=== PATIENT | male | born 1965 | race Hispanic/Latino ===

== ENCOUNTER 2018-02-16 22:02 | Emergency (ER) | payer OTHER ==
[~2018-02-16] VITALS: Ht 154.9 cm; Wt 112.0 kg
--- OUTSIDE RECORDS SUMMARY | 2018-02-16 22:04 | XMS REPORT | Summary of Care ---
Author Author [facility] Organization [facility] Address Unknown Phone Unavailable Encounter HQ Barbara(WILLIAM) [phone] Date(s): 12/19/15 - 12/19/15 [facility] [address] [place] [address]- [phone] Discharge Diagnosis: Suprapubic pain Discharge Diagnosis: Chronic back pain Discharge Diagnosis: Hematuria Discharge Diagnosis: Testicular pain Discharge Diagnosis: Hydrocele Discharge Disposition: Home or Self Care Attending Physician: Esteban Cisneros MD Vital Signs 1 2 3 Most recent to oldest [Reference Range]: 160.02 cm (12/19/15 12:45 AM) Height 98.1 DegF (12/19/15 6:34 AM) 98.6 DegF (12/19/15 4:25 AM) 98.3 DegF (12/19/15 3:22 AM) Temperature Oral [96.4-99.1 DegF] 134/60 mmHg (12/19/15 6:34 AM) 122/86 mmHg (12/19/15 4:25 AM) 136/86 mmHg (12/19/15 3:22 AM) Blood Pressure [90-140/60-90 mmHg] 16 BRMIN (12/19/15 6:34 AM) 14 BRMIN (12/19/15 4:25 AM) 20 BRMIN (12/19/15 3:22 AM) Respiratory Rate [14-20 BRMIN] 92 bpm (12/19/15 6:34 AM) 94 bpm (12/19/15 4:25 AM) 98 bpm (12/19/15 3:22 AM) Peripheral Pulse Rate [60-100 bpm] 113.636 kg (12/19/15 12:45 AM) Weight 44.38 m2 (12/19/15 12:45 AM) Body Mass Index Problem List Condition Effective Dates Status Health Status Informant Chronic back Active pain(Confirmed) Allergies, Adverse Reactions, Alerts Substance Reaction Severity Status Lyrica Active NKDA Active Vicodin Active Medications No data available for this section Results URINE AND STOOL Most recent to 1 oldest [Reference Range]: UA Turbidity [Clear] Clear (12/19/15 1:14 AM) UA Color Ltyellow *NA* (12/19/15 1:14 AM) UA pH [5.0-8.0] 5.0 (12/19/15 1:14 AM) UA Spec Grav 1.026 [<=1.030] (12/19/15 1:14 AM) UA Glucose [Negative 500 mg/dL mg/dL] *ABN* (12/19/15 1:14 AM) UA Blood [Negative] Moderate *ABN* (12/19/15 1:14 AM) UA Ketones [Negative Negative mg/dL mg/dL] *NA* (12/19/15 1:14 AM) UA Protein [Negative Negative mg/dL mg/dL] (12/19/15 1:14 AM) UA Urobilinogen <=1.0 mg/dL [0.1-1.0 mg/dL] *NA* (12/19/15 1:14 AM) UA Bili [Negative] Negative *NA* (12/19/15 1:14 AM) UA Leuk Est Negative [Negative] (12/19/15 1:14 AM) UA Nitrite Negative [Negative] (12/19/15 1:14 AM) UA WBC [0-5 /HPF] 1 /HPF (12/19/15 1:14 AM) UA RBC [0-2 /HPF] 7 /HPF *HI* (12/19/15 1:14 AM) UA Bacteria [None Occasional /HPF Seen /HPF] *NA* (12/19/15 1:14 AM) UA Sq Epi None Seen *NA* (12/19/15 1:14 AM) Immunizations No data available for this section Procedures No data available for this section Social History Social History Type Response Smoking Status Never smoker; Exposure to Tobacco Smoke None; Cigarette Smoking Last 365 Days No; Reg Smoking Cessation Counseling No Assessment and Plan No data available for this section
--- OUTSIDE RECORDS SUMMARY | 2018-02-16 22:04 | XMS REPORT | Summary of Care ---
Author Author [facility] Organization [facility] Address Unknown Phone Unavailable Encounter HQ Encntr_alishelby(WILLIAM) [phone] Date(s): 04/13/15 - 04/13/15 [facility] [address] [place] [address]- [phone] Discharge Disposition: Home Attending Physician: Tonia Estrada MD Admitting Physician: Tonia Estrada MD Referring Physician: Tonia Estrada MD Vital Signs No data available for this section Problem List No data available for this section Allergies, Adverse Reactions, Alerts Substance Reaction Severity Status Lyrica Active Vicodin Active Medications No data available for this section Results No data available for this section Immunizations No data available for this section Procedures No data available for this section Social History No data available for this section Assessment and Plan No data available for this section
--- OUTSIDE RECORDS SUMMARY | 2018-02-16 22:04 | XMS REPORT | CCD ---
Author Author Auto Generated Organization [facility] Address Unknown Phone Unavailable Care Team Providers Care Pediatric Anesthesiologist Name Role Phone Jordan Bustillo CP Allergies, Adverse Reactions, Alerts Substance Reaction Status Lyrica Active Vicodin Active Medications Medication Instructions Start Date End Date Status hydromorphone 1 mg, Route: IVP, ONCE, Dosing 11/17/2011 11/17/2011 Completed Weight 106.364, kg, Priority: STAT, Start date: 11/17/11 11:45:00, Stop date: 11/17/11 11:45:00 Tylenol with Codeine 1 tab, PO, Q6H, PRN, 15 tab, Pain, 11/17/2011 Ordered #3 oral tablet Substitution Allowed, Maintenance diazepam 5 mg, Route: PO, ONCE, Dosing 11/17/2011 11/17/2011 Completed Weight 106.364, kg, Priority: STAT, Start date: 11/17/11 8:15:00, Stop date: 11/17/11 8:15:00 diazepam 10 mg oral 10 mg, 1 tab, PO, TID, PRN, 15 tab, 11/17/2011 Ordered tablet Back Pain, Substitution Allowed, TAB hydromorphone 1 mg, Route: IVP, ONCE, Dosing 11/17/2011 11/17/2011 Completed Weight 106.364, kg, Priority: STAT, Start date: 11/17/11 8:15:00, Stop date: 11/17/11 8:15:00 Vital Signs Most recent to oldest [Reference Range]: 1 Height 154.94 cm (11/17/2011 06:03:00) Weight 106.364 kg (11/17/2011 06:03:00) Results URINALYSIS Most recent to oldest [Reference Range]: 1 UA Turbidity [Clear] Clear (11/17/2011 11:45:00) UA Color [Yellow] Yellow *NA* (11/17/2011 11:45:00) UA pH [5.0-8.0] 5.0 (11/17/2011 11:45:00) UA Spec Grav [<=1.030] 1.021 (11/17/2011 11:45:00) UA Glucose [Negative mg/dL] Negative mg/dL *NA* (11/17/2011 11:45:00) UA Blood [Negative] Moderate *ABN* (11/17/2011 11:45:00) UA Ketones [Negative mg/dL] Negative mg/dL *NA* (11/17/2011 11:45:00) UA Protein [Negative mg/dL] Negative mg/dL (11/17/2011 11:45:00) UA Urobilinogen [0.1-1.0 mg/dL] <=1.0 mg/dL *NA* (11/17/2011 11:45:00) UA Bili [Negative] Negative *NA* (11/17/2011 11:45:00) UA Leuk Est [Negative] Negative (11/17/2011 11:45:00) UA Nitrite [Negative] Negative (11/17/2011 11:45:00) UA WBC [0-5 /HPF] 1 /HPF (11/17/2011 11:45:00) UA RBC [0-2 /HPF] 2 /HPF (11/17/2011 11:45:00) UA Bacteria [None Seen /HPF] Occasional /HPF *NA* (11/17/2011 11:45:00) UA Sq Epi [Few /LPF] Occasional /LPF *NA* (11/17/2011 11:45:00) CHEMISTRY Most recent to oldest [Reference Range]: 1 Sodium Lvl [135-145 mEq/L] 139 mEq/L (11/17/2011 10:00:00) Potassium Lvl [3.5-5.1 mEq/L] 3.7 mEq/L (11/17/2011 10:00:00) Chloride Lvl [95-109 mEq/L] 106 mEq/L (11/17/2011 10:00:00) CO2 [24-32 mEq/L] 24 mEq/L (11/17/2011 10:00:00) AGAP [10.0-20.0 mEq/L] 12.7 mEq/L (11/17/2011 10:00:00) Creatinine Lvl [0.5-1.4 mg/dL] 0.8 mg/dL (11/17/2011 10:00:00) BUN [7-22 mg/dL] 14 mg/dL (11/17/2011 10:00:00) Glucose Lvl [70-99 mg/dL] 106 mg/dL 1 *HI* (11/17/2011 10:00:00) Calcium Lvl [8.5-10.5 mg/dL] 9.1 mg/dL (11/17/2011 10:00:00) Total CK [12-191 unit/L] 146 unit/L (11/17/2011 10:00:00) 1Interpretive Data: Adult reference range values reflect the clinical guidelines of the [place] [employer]. HEMATOLOGY Most recent to oldest [Reference Range]: 1 WBC [3.7-10.4 K/CMM] 8.5 K/CMM (11/17/2011 10:00:00) RBC [4.70-6.10 M/CMM] 5.03 M/CMM (11/17/2011 10:00:00) Hgb [14.0-18.0 g/dL] 15.4 g/dL (11/17/2011 10:00:00) Hct [42.0-54.0 %] 45.4 % (11/17/2011 10:00:00) MCV [80.0-94.0 fL] 90.3 fL (11/17/2011 10:00:00) MCH [27.0-31.0 pg] 30.7 pg (11/17/2011 10:00:00) MCHC [32.0-36.0 g/dL] 34.0 g/dL (11/17/2011 10:00:00) RDW [11.5-14.5 %] 13.6 % (11/17/2011 10:00:00) Platelet [133-450 K/CMM] 252 K/CMM (11/17/2011 10:00:00) MPV [7.4-10.4 fL] 7.6 fL (11/17/2011 10:00:00) Segs [45.0-75.0 %] 70.7 % (11/17/2011 10:00:00) Lymphocytes [20.0-40.0 %] 21.6 % (11/17/2011 10:00:00) Monocytes [2.0-12.0 %] 6.0 % (11/17/2011 10:00:00) Eosinophils [0.0-4.0 %] 1.2 % (11/17/2011 10:00:00) Basophils [0.0-1.0 %] 0.5 % (11/17/2011 10:00:00) Segs-Bands # [1.5-8.1 K/CMM] 6.0 K/CMM (11/17/2011 10:00:00) Lymphocytes # [1.0-5.5 K/CMM] 1.8 K/CMM (11/17/2011 10:00:00) Monocytes # [0.0-0.8 K/CMM] 0.5 K/CMM (11/17/2011 10:00:00) Eosinophils # [0.0-0.5 K/CMM] 0.1 K/CMM (11/17/2011 10:00:00) Basophils # [0.0-0.2 K/CMM] 0.0 K/CMM (11/17/2011 10:00:00)
--- OUTSIDE RECORDS SUMMARY | 2018-02-16 22:04 | XMS REPORT | CCD ---
Author Author Auto Generated Organization [facility] Address Unknown Phone Unavailable Care Team Providers Care Maintenance Controller Name Role Phone Tonia Estrada CP Allergies, Adverse Reactions, Alerts Substance Reaction Status Lyrica Active Vicodin Active
--- OUTSIDE RECORDS SUMMARY | 2018-02-16 22:04 | XMS REPORT | Summary of Care ---
Author Author Florencio Frey Organization Unknown Address Unknown Phone Unavailable Care Team Providers Care Manager Practice Name Role Phone PURA Montelongo, MACRINA Unavailable Unavailable DANIELLE Montelongo, GERBER Unavailable Unavailable JESÚS Montelongo, MOUSTAFA Unavailable Unavailable Florencio Frey Unavailable Unavailable PURA PARHAM UT, MACRINA Harrell Unavailable Unavailable Unavailable Unavailable Functional Status Name Dates Details Functional status health issues are not documented Status: Name Dates Details Cognitive status health issues are not documented Status: Problems Name Dates Details Generalized weakness (780.79, R53.1) Status: Active Lump or mass in breast (611.72, N63.0) Status: Active Chest pain (786.50, R07.9) Status: Active On statin therapy (V58.69, Z79.899) Status: Active Hypertension (401.9, I10) Status: Active Hyperlipidemia (272.4, E78.5) Status: Active Encounter for diabetic foot exam (250.00, E11.9) Status: Active Abnormal weight gain (783.1, R63.5) Status: Active Acute bacterial bronchitis (466.0, J20.8) Status: Active Chronic cervical radiculopathy (723.4, M54.12) Status: Active Inflamed skin tag (701.9, L91.8) Status: Active Spondylosis without myelopathy or radiculopathy, 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, M47.816) Status: Active Chronic left shoulder pain (719.41, M25.512) Status: Active Chronic pain of both knees (719.46, M25.561) Status: Active Chronic bilateral low back pain with bilateral sciatica (724.2, M54.42) Status: Active Diabetes mellitus (250.00, E11.9) Status: Active Failed back syndrome, lumbar (722.83, M96.1) Status: Active 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 * Refills: 0 Active Duexis 800-26.6 MG Oral Tablet TAKE 1 TABLET DAILY PRN * Refills: 0 Active OneTouch Verio In Vitro Strip Check BG 2x a day * Quantity: 1 Refills: 2 MACRINA NEVES M.D. * Start : 23-Feb-2016 Active 100 Strip Box OneTouch Delica Lancets 33G Check twice daily * Quantity: 100 Refills: 2 MACRINA NEVES M.D. * Start : 23-Feb-2016 Active MetFORMIN HCl ER 500 MG Oral Tablet Extended Release 24 Hour TAKE 1 TABLET TWICE DAILY * Quantity: 180 Refills: 1 MACRINA NEVES M.D. Active Gabapentin 300 MG Oral Capsule TAKE 2 CAPSULE 3 TIMES DAILY * Quantity: 180 Refills: 0 PADDY ESPINOSA M.D. Active Ezetimibe 10 MG Oral Tablet TAKE 1 TABLET AT BEDTIME. * Quantity: 90 Refills: 1 GERBER SANTOS M.D. * Start : 13-Jun-2016 Active Aspirin 81 MG Oral Tablet Delayed Release TAKE 1 TABLET DAILY * Refills: 0 * Start : 13-Jun-2016 Active Livalo 4 MG Oral Tablet TAKE 1 TABLET DAILY * Quantity: 30 Refills: 5 GERBER SANTOS M.D. * Start : 18-Aug-2016 Active Multi Vitamin Daily TABS * Refills: 0 Active Livalo 4 MG Oral Tablet TAKE 1 TABLET DAILY * Quantity: 90 Refills: 3 GERBER SANTOS M.D. * Start : 21-Dec-2017 Active Allergies and Adverse Reactions Name Dates Details Lyrica CAPS (Allergy) Status: Active pravastatin (Allergy) Reaction: Myalgia Status: Active Vicodin TABS (Allergy) Status: Active Past Medical History Name Dates Details History of Deficiency of vitamin B12 (266.2, E53.8) Status: Resolved History of depression (V11.8, Z86.59) Status: Resolved History of esophageal reflux (V12.79, Z87.19) Status: Resolved History of headache (V13.89, Z87.898) Status: Resolved History of obesity (V12.29, Z86.39) Status: Resolved Procedures Procedure Dates Details [Q] LIPID PANEL WITH DIRECT LDL Date: 21-Dec-2017 [QLH] HEPATIC FUNCTION PANEL Date: 21-Dec-2017 History of Arthrodesis Lumbar Completed History of Shoulder Surgery Completed Immunization Name Dates Details Influenza, injectable, quadrivalent, preservative free Lot #: [id number] on: 10-Oct-2017 Family History Name Dates Details Family history of congestive heart failure (V17.49, Z82.49) Status: Active Family history of Leaky heart valve (396.3, I38) Status: Active Name Dates Details Family history of myocardial infarction (V17.3, Z82.49) Status: Active Social History Name Dates Details - Status: Name Dates Details Never smoker Vital Signs Date Test Result Details [id number] BP Systolic 124 mm[Hg] Status: Comments: Location: LUE; Position: Sitting BP Diastolic 86 mm[Hg] Status: Comments: Location: LUE; Position: Sitting Height 61 in Status: Weight 251 lb Status: Body Mass Index Calculated 47.43 kg/m2 Status: Body Surface Area Calculated 2.08 m2 Status: Temperature 97.9 f Status: Comments: Method: Temporal Heart Rate 96 /min Status: Respiration Rate 16 /min Status: Results Date Description Value Details Results not documented Plan of Care Name Dates Details Planned Observations Planned Goals not documented Planned Encounters Appointment; GERBER SANTOS M.D. On: 20-Dec-2018 9:00 Instructions Name Dates Details Instructions not documented Encounters Appointment; MACRINA NEVES M.D. Encounter Diagnosis: Problem not documented On: 11-Feb-2016 9:45 Appointment; [facility] [address] [address] Encounter Diagnosis: Problem not documented On: 23-Feb-2016 13:00 Appointment; MACRINA NEVES M.D. Encounter Diagnosis: Problem not documented On: 25-Feb-2016 8:15 Appointment; MACRINA NEVES M.D. Encounter Diagnosis: Problem not documented On: 26-May-2016 9:00 Appointment; MACRINA NEVES M.D. Encounter Diagnosis: Problem not documented On: 13-Jun-2016 10:30 Appointment; GERBER SANTOS M.D. Encounter Diagnosis: Problem not documented On: 13-Jun-2016 15:00 Appointment; [facility] Encounter Diagnosis: Problem not documented On: 14-Jun-2016 9:00 Appointment; [facility] Encounter Diagnosis: Problem not documented On: 20-Jun-2016 11:30 Appointment; GERBER SANTOS M.D. Encounter Diagnosis: Problem not documented On: 20-Jun-2016 15:00 Appointment; GERBER SANTOS M.D. Encounter Diagnosis: Problem not documented On: 18-Aug-2016 15:30 Appointment; MACRINA NEVES M.D. Encounter Diagnosis: Problem not documented On: 25-Aug-2016 9:00 Appointment; MACRINA NEVES M.D. Encounter Diagnosis: Problem not documented On: 28-Nov-2016 9:00 Appointment; GERBER SANTOS M.D. Encounter Diagnosis: Problem not documented On: 05-Dec-2016 13:20 Appointment; SAHRA HIGGINS P.A. Encounter Diagnosis: Problem not documented On: 13-Jan-2017 10:15 Appointment; MACRINA NEVES M.D. Encounter Diagnosis: Problem not documented On: 13-Feb-2017 10:15 Appointment; GERBER SANTOS M.D. Encounter Diagnosis: Problem not documented On: 07-Mar-2017 13:00 Appointment; GERBER SANTOS M.D. Encounter Diagnosis: Problem not documented On: 19-Jun-2017 13:00 Appointment; MACRINA NEVES M.D. Encounter Diagnosis: Problem not documented On: 20-Jul-2017 12:30 Appointment; MACRINA NEVES M.D. Encounter Diagnosis: Problem not documented On: 05-Oct-2017 10:00 Appointment; PADDY ESPINOSA M.D. Encounter Diagnosis: Problem not documented On: 28-Nov-2017 8:00 Appointment; PADDY ESPINOSA M.D. Encounter Diagnosis: Problem not documented On: 28-Nov-2017 8:15 Appointment; GERBER SANTOS M.D. Encounter Diagnosis: Problem not documented On: 21-Dec-2017 9:20 Appointment; MACRINA NEVES M.D. Encounter Diagnosis: Problem not documented On: 01-Jan-2018 14:30 Appointment; MACRINA NEVES M.D. Encounter Diagnosis: Problem not documented On: 01-Jan-2018 14:30
--- OUTSIDE RECORDS SUMMARY | 2018-02-16 22:04 | XMS REPORT | CCD ---
Author Author Auto Generated Organization [facility] Address Unknown Phone Unavailable Care Team Providers Care End User Consultant Name Role Phone Tonia Estrada CP Allergies, Adverse Reactions, Alerts Substance Reaction Status Lyrica Active Vicodin Active
--- OUTSIDE RECORDS SUMMARY | 2018-02-16 22:04 | XMS REPORT | Continuity of Care Document ---
Author Author Radha larissa [facility] Interface Address Unknown Phone Unavailable Problems Problem Status Onset Date Classification Date Reported Comments Source Discharge Diagnosis: Suprapubic pain 12/19/2015 12/22/2015 [facility] Discharge Diagnosis: Chronic back pain 12/19/2015 12/22/2015 [facility] Discharge Diagnosis: Hematuria 12/19/2015 12/22/2015 [facility] Discharge Diagnosis: Testicular pain 12/19/2015 12/22/2015 [facility] Discharge Diagnosis: Hydrocele 12/19/2015 12/22/2015 [facility] PROSTATE PAIN Active 12/17/2015 [facility] M54.17=RADICULOPATHY, LUMBOSACRAL REGION Active 04/03/2015 [facility] BACK PAIN Active 11/17/2011 [facility] Chronic back pain Active Problem 12/22/2015 [facility] UNK Active [facility] 724.4 Active [facility] Medications Medication Details Route Status Patient Instructions Ordering Provider Order Date Source hydromorphone 1 mg, Route: IVP, ONCE, Dosing Weight 106.364, kg, Priority: STAT, Start date: 11/17/11 11:45:00, Stop date: 11/17/11 11:45:00 IVP No Longer Active [facility] 11/17/2011 [facility] Tylenol with Codeine #3 oral tablet 1 tab, PO, Q6H, PRN, 15 tab, Pain, Substitution Allowed, Maintenance PO Active [facility] 11/17/2011 [facility] diazepam 10 mg oral tablet 10 mg, 1 tab, PO, TID, PRN, 15 tab, Back Pain, Substitution Allowed, TAB PO Active [facility] 11/17/2011 [facility] diazepam 5 mg, Route: PO, ONCE, Dosing Weight 106.364, kg, Priority: STAT, Start date: 11/17/11 8:15:00, Stop date: 11/17/11 8:15:00 PO No Longer Active [facility] 11/17/2011 [facility] hydromorphone 1 mg, Route: IVP, ONCE, Dosing Weight 106.364, kg, Priority: STAT, Start date: 11/17/11 8:15:00, Stop date: 11/17/11 8:15:00 IVP No Longer Active [facility] 11/17/2011 [facility] Allergies, Adverse Reactions, Alerts Substance Category Reaction Severity Reaction type Status Date Reported Comments Source Lyrica drug allergy Allergy Active [facility] Vicodin drug allergy Allergy Active [facility] Immunizations Immunization Date Given Site Status Last Updated Comments Source Results Order Name Results Value Reference Range Date Interpretation Comments Source URINE AND STOOL UA Sq Epi None Seen 12/19/2015 [facility] URINE AND STOOL UA Bacteria Occasional /HPF None Seen /HPF 12/19/2015 [facility] URINE AND STOOL UA Color Ltyellow 12/19/2015 [facility] URINE AND STOOL UA Urobilinogen <=1.0 mg/dL 0.1 - 1.0 12/19/2015 [facility] URINE AND STOOL UA Spec Grav 1.026 <=1.030 12/19/2015 [facility] URINE AND STOOL UA Turbidity Clear (12/19/15 1:14 AM) Clear 12/19/2015 [facility] URINE AND STOOL UA Nitrite Negative (12/19/15 1:14 AM) Negative 12/19/2015 [facility] URINE AND STOOL UA Blood Moderate *ABN* (12/19/15 1:14 AM) Negative 12/19/2015 [facility] URINE AND STOOL UA WBC 1 /HPF 0 - 5 12/19/2015 [facility] URINE AND STOOL UA Leuk Est Negative (12/19/15 1:14 AM) Negative 12/19/2015 [facility] URINE AND STOOL UA RBC 7 /HPF 0 - 2 12/19/2015 [facility] URINE AND STOOL UA Bili Negative *NA* (12/19/15 1:14 AM) Negative 12/19/2015 [facility] URINE AND STOOL UA Ketones Negative mg/dL Negative mg/dL 12/19/2015 [facility] URINE AND STOOL UA Glucose 500 mg/dL Negative mg/dL 12/19/2015 [facility] URINE AND STOOL UA Protein Negative mg/dL Negative mg/dL 12/19/2015 [facility] URINE AND STOOL UA pH 5.0 5.0 - 8.0 12/19/2015 [facility] Scrotal/Testicle w Doppler US Scrotal/Testicle w Doppler US SCROTAL ULTRASOUND WITH DOPPLER HISTORY: Scrotal pain; COMPARISON: Scrotal ultrasound of 09/21/2009. TECHNIQUE AND FINDINGS: Multiple static images from a testicular ultrasound are submitted for interpretation. Doppler imaging was included. The bilateral testicular size, shape, and echotexture are normal. Bilateral microlithiasis is present. The right testicle measures 3.4 cm x 1.8 cm x 3.8 cm and the left testicle measures 3.8 cm x 2.1 cm x 2.9 cm. Normal blood flow to the testicles is identified. The bilateral epididymis are normal in appearance. Small to moderate bilateral hydroceles are present. Left varicocele is present. IMPRESSION: 1. No specific acute findings detected. 2. Small to moderate bilateral hydroceles. 3. Left varicocele is present. 4. Mild bilateral testicular microlithiasis. No definite mass lesion detected. SL: [id number] 12/19/2015 - - Read by: Fabricio Dyer MD Dictated Date/time: 12/19/15 02:40 Electronically Signed by: Fabricio Dyer MD 12/19/15 02:49 FINAL REPORT [facility] Spine lumbar wo contrast CT Spine lumbar wo contrast CT CT LUMBAR SPINE WITHOUT CONTRAST INDICATION: Lumbar back pain and radiculopathy COMPARISON: Lumbar spine radiograph 03/22/2012 DISCUSSION: The CT of the lumbar spine was performed following discography. Injections are noted from L3-L4 through L5-S1. Due to technical error, the lumbosacral spine was not scanned below the level of the inferior endplate of L5. The L5-S1 disc space is not included in the study. The usual five non-rib bearing lumbar vertebral bodies are presumed present. Alignment: There is normal lordotic curvature. Vertebral body alignment is within normal limits. Vertebral bodies: There are no compression or displaced fractures. Soft tissues: Grossly unremarkable. 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 T12-L1 through L2-L3: The disc spaces are maintained. There is no significant facet arthrosis. The spinal canal and foramina are grossly patent. L3-L4: The disc space is maintained. There is no significant facet arthrosis.The spinal canal and foramina are patent. There is linear extension of injected contrast into the inner one third of the annulus. L4-L5: The disc spaces maintained. There is no significant facet arthrosis. The spinal canal and foramina are grossly patent. There is no visible contrast leak from the nucleus. IMPRESSION: Incomplete CT of the lumbar spine following discogram. The L5-S1 level was not scanned. If clinically indicated, consider repeat discography or MRI of the lumbar spine for further evaluation. Discography is interpreted using the Modified Randell Discogram classification system. 1. No significant lumbar spondylosis, spinal canal or foraminal stenosis. 2. Grade 1 annular tear at L3-L4. 3. Grade 0 (normal disc) at L4-L5. SL: 16 04/13/2015 - - Read by: Khris Juan MD Dictated Date/time: 04/15/15 13:22 Electronically Signed by: Khris Juan MD 04/15/15 13:50 FINAL REPORT [facility] Spine cervical minimum of 4 views Spine cervical minimum of 4 views HISTORY: Pain Cervical spine 5 views. Normal vertebral height and alignment. No fracture subluxation or acute abnormality. Mild disc space narrowing at C4-C5. Minimal C4-C5 and C5-C6 anterior osteophytes. Oblique views demonstrate widely patent neural exit foramina. IMPRESSION: Mild degenerative changes. SL:13 11/28/2012 - - Read by: Jaret Weathers Dictated Date/time: 11/28/12 11:12 Electronically Signed by: Jaret Weathers MD 11/28/12 11:13 FINAL REPORT [facility] URINALYSIS UA Urobilinogen <=1.0 mg/dL
*NA*
(11/17/2011 11:45:00) <sup> </sup> 0.1 - 1.0 11/17/2011 [facility] URINALYSIS UA pH 5.0 5.0 - 8.0 11/17/2011 Normal [facility] URINALYSIS UA Protein Negative mg/dL (11/17/2011 11:45:00) Negative 11/17/2011 Normal [facility] URINALYSIS UA Spec Grav 1.021 <=1.030 11/17/2011 Normal [facility] URINALYSIS UA Ketones Negative mg/dL *NA* (11/17/2011 11:45:00) Negative 11/17/2011 [facility] URINALYSIS UA Bili Negative *NA* (11/17/2011 11:45:00) Negative 11/17/2011 [facility] URINALYSIS UA Blood Moderate *ABN* (11/17/2011 11:45:00) Negative 11/17/2011 ABN [facility] URINALYSIS UA Nitrite Negative (11/17/2011 11:45:00) Negative 11/17/2011 Normal [facility] URINALYSIS UA Glucose Negative mg/dL *NA* (11/17/2011 11:45:00) Negative 11/17/2011 NA [facility] URINALYSIS UA Bacteria Occasional /HPF *NA* (11/17/2011 11:45:00) None Seen 11/17/2011 NA [facility] URINALYSIS UA Leuk Est Negative (11/17/2011 11:45:00) Negative 11/17/2011 Normal [facility] URINALYSIS UA Sq Epi Occasional /LPF *NA* (11/17/2011 11:45:00) Few 11/17/2011 NA [facility] URINALYSIS UA WBC 1 /HPF 0 - 5 11/17/2011 Normal [facility] URINALYSIS UA RBC 2 /HPF 0 - 2 11/17/2011 Normal [facility] URINALYSIS UA Color Yellow *NA* (11/17/2011 11:45:00) Yellow 11/17/2011 NA [facility] URINALYSIS UA Turbidity Clear (11/17/2011 11:45:00) Clear 11/17/2011 Normal [facility] CHEMISTRY Total CK 146 unit/L 12 - 191 11/17/2011 Normal [facility] CHEMISTRY Calcium Lvl 9.1 mg/dL 8.5 - 10.5 11/17/2011 Normal [facility] CHEMISTRY CO2 24 meq/L 24 - 32 11/17/2011 Normal [facility] CHEMISTRY Chloride Lvl 106 meq/L 95 - 109 11/17/2011 Normal [facility] CHEMISTRY Creatinine Lvl 0.8 mg/dL 0.5 - 1.4 11/17/2011 Normal [facility] CHEMISTRY Potassium Lvl 3.7 meq/L 3.5 - 5.1 11/17/2011 Normal [facility] CHEMISTRY BUN 14 mg/dL 7 - 22 11/17/2011 Normal [facility] CHEMISTRY Sodium Lvl 139 meq/L 135 - 145 11/17/2011 Normal [facility] CHEMISTRY Glucose Lvl 106 mg/dL 70 - 99 11/17/2011 [facility] 1Interpretive Data: Adult reference range values reflect the clinical guidelines of the [place] [employer]. [facility] CHEMISTRY AGAP 12.7 meq/L 10.0 - 20.0 11/17/2011 Normal [facility] HEMATOLOGY Hgb 15.4 g/dL 14.0 - 18.0 11/17/2011 Normal [facility] HEMATOLOGY Hct 45.4 % 42.0 - 54.0 11/17/2011 Normal [facility] HEMATOLOGY RBC 5.03 M/CMM 4.70 - 6.10 11/17/2011 Normal [facility] HEMATOLOGY WBC 8.5 K/CMM 3.7 - 10.4 11/17/2011 Normal [facility] HEMATOLOGY RDW 13.6 % 11.5 - 14.5 11/17/2011 Normal [facility] HEMATOLOGY MCV 90.3 fL 80.0 - 94.0 11/17/2011 Normal [facility] HEMATOLOGY MCHC 34.0 g/dL 32.0 - 36.0 11/17/2011 Normal [facility] HEMATOLOGY MCH 30.7 pg 27.0 - 31.0 11/17/2011 Normal [facility] HEMATOLOGY Platelet 252 K/CMM 133 - 450 11/17/2011 Normal [facility] HEMATOLOGY MPV 7.6 fL 7.4 - 10.4 11/17/2011 Normal [facility] HEMATOLOGY Lymphocytes # 1.8 K/CMM 1.0 - 5.5 11/17/2011 Normal [facility] HEMATOLOGY Basophils 0.5 % 0.0 - 1.0 11/17/2011 Normal [facility] HEMATOLOGY Segs-Bands # 6.0 K/CMM 1.5 - 8.1 11/17/2011 Normal [facility] HEMATOLOGY Eosinophils # 0.1 K/CMM 0.0 - 0.5 11/17/2011 Normal [facility] HEMATOLOGY Basophils # 0.0 K/CMM 0.0 - 0.2 11/17/2011 Normal [facility] HEMATOLOGY Monocytes # 0.5 K/CMM 0.0 - 0.8 11/17/2011 Normal [facility] HEMATOLOGY Lymphocytes 21.6 % 20.0 - 40.0 11/17/2011 Normal [facility] HEMATOLOGY Monocytes 6.0 % 2.0 - 12.0 11/17/2011 Normal [facility] HEMATOLOGY Eosinophils 1.2 % 0.0 - 4.0 11/17/2011 Normal [facility] HEMATOLOGY Segs 70.7 % 45.0 - 75.0 11/17/2011 Normal [facility] Vital Signs Vital Sign Value Date Comments Source Systolic (mm Hg) 134 12/19/2015 [facility] Diastolic (mm Hg) 60 12/19/2015 [facility] Respitory Rate 16 12/19/2015 [facility] Heart Rate 92 12/19/2015 [facility] Temperature Oral (F) 98.1 F 12/19/2015 [facility] Respitory Rate 14 12/19/2015 [facility] Systolic (mm Hg) 122 12/19/2015 [facility] Diastolic (mm Hg) 86 12/19/2015 [facility] Temperature Oral (F) 98.6 F 12/19/2015 [facility] Heart Rate 94 12/19/2015 [facility] Temperature Oral (F) 98.3 F 12/19/2015 [facility] Systolic (mm Hg) 136 12/19/2015 [facility] Diastolic (mm Hg) 86 12/19/2015 [facility] Heart Rate 98 12/19/2015 [facility] Respitory Rate 20 12/19/2015 [facility] Height 160.02 cm 12/19/2015 [facility] Weight 113.636 12/19/2015 [facility] BMI Calculated 44.38 12/19/2015 [facility] Weight 106.364 11/17/2011 [facility] Height 154.94 cm 11/17/2011 [facility] Encounters Location Location Details Encounter Type Encounter Number Reason For Visit Attending Provider ADM Date DC Date Status Source [facility] Emergency [id number] OVI QUIJANO 11/17/2011 11/17/2011 Active [facility] Out[facility] [id number] [facility]24[facility]2012 Active [facility] Outpatient [id number] [facility] HAMID 11/28/2012 Active [facility] Outpatient [id number] [facility] Hamid 04/13/2015 04/14/2015 [facility] Emergency [id number] Esteban Cisneros 12/19/2015 12/19/2015 [facility] Outpatient [id number] FABRICIO MANCILLAH 06/07/2016 Active [facility] Procedures Procedure Code Date Perfomer Comments Source
--- NOTE | 2018-02-16 23:08 | Diagnostic Imaging Report ---
EXAMINATION: Head CT HISTORY: Headache, hypertension, left-sided head and neck pain for the last 2 days COMPARISON: None. TECHNIQUE: Multidetector axial images were obtained without contrast from the foramen magnum to the vertex . The images were reconstructed using brain and bone algorithms. Thin section brain images were reformatted into coronal and sagittal planes. Image quality: Motion/streaking artifact limits the evaluation of the skull base and posterior cranial fossa. Dose modulation, iterative reconstruction, and/or weight based adjustment of the mA/kV was utilized to reduce the radiation dose to as low as reasonably achievable. FINDINGS: Parenchyma: 1. No abnormal densities. 2. No mass or hemorrhage. No CT evidence of acute territorial vascular insult. Extra-axial spaces:No abnormal density. No extra-axial fluid collections Brain volume: Normal for age. Ventricles: No hydrocephalus or displacement. Arteries: No density suggestive of thrombus. Dural sinuses: No abnormal density. Extra-axial spaces: No abnormal density. Foramen magnum: No mass, Chiari malformation, or basilar invagination. Sella: No obvious mass. Paranasal/mastoid sinuses: Imaged portions unremarkable. Skull/Scalp: No lytic or blastic lesions. No fractures. IMPRESSION: Normal head CT. Signed by: Dr. Reshma Lechuga M.D. on 02/16/2018 11:05 PM
[2018-02-17] MEDS ORDERED: KETOROLAC TROMETHAMINE 60 MG/2 ML VIAL IM ONE (00:15)
[2018-02-17] MEDS ORDERED: ORPHENADRINE CITRATE 30 MG/ML VIAL IM ONE (00:15)
[2018-02-17 00:34] VITALS: BP 136/80
== END 2018-02-17 01:03 | disposition home or self-care (01) ==
LOC: ER 22:02
DX: G44.219 Episodic tension-type headache, not intractable (principal); E11.9 Type 2 diabetes mellitus without complications; K21.9 Gastro-esophageal reflux disease without esophagitis; N40.0 Benign prostatic hyperplasia without lower urinary tract symptoms; M79.2 Neuralgia and neuritis, unspecified; G89.29 Other chronic pain
CPT/HCPCS: 70450; 99283; J1885; J2360

== ENCOUNTER 2019-07-04 16:52 | Observation (INO) | payer OTHER ==
[~2019-07-04] VITALS: Ht 154.9 cm; Wt 112.0 kg
--- OUTSIDE RECORDS SUMMARY | 2019-07-04 16:55 | XMS REPORT | Summary of Care ---
Author Author DANIELLE Montelongo, GERBER Organization Unknown Address Unknown Phone Unavailable Care Team Providers Care School Commissioner Name Role Phone PURA Montelongo, MACRINA Unavailable Unavailable DANIELLE Montelongo, GERBER Unavailable Unavailable JESÚS Montelongo, MOUSTAFA Unavailable Unavailable PURA PARHAM PR, MACRINA Harrell Unavailable Unavailable MIMI MOLINA PR, RORY Unavailable Unavailable RIO PARHAM, RUSSELL Chung Unavailable Unavailable HONORIO PARHAM PR, ZENAIDA CARTER Unavailable Unavailable DANIELLE PARHAM, GERBER Unavailable Unavailable Unavailable Unavailable Functional Status Name Dates Details Functional status health issues are not documented Status: Name Dates Details Cognitive status health issues are not documented Status: Problems Name Dates Details Generalized weakness (780.79, R53.1) Status: Active Lump or mass in breast (611.72, N63.0) Status: Active On statin therapy (V58.69, Z79.899) Status: Active Hypertension (401.9, I10) Status: Active Hyperlipidemia (272.4, E78.5) Status: Active Abnormal weight gain (783.1, R63.5) Status: Active Spondylosis without myelopathy or radiculopathy, 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, M47.816) Status: Active Chronic left shoulder pain (719.41, M25.512) Status: Active Failed back syndrome, lumbar (722.83, M96.1) Status: Active 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, 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 Peripheral neuropathy (356.9, G62.9) Status: Active Chronic neuropathic pain (729.2, M79.2) Status: Active Seasonal allergic rhinitis due to pollen (477.0, J30.1) Status: Active Chronic pain of both knees (719.46, M25.561) Status: Active Chondromalacia, knee (717.7, M94.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) Status: Active Acute internal derangement of knee, right (717.9, M23.91) Status: Active Acute internal derangement of knee, left (717.9, M23.92) Status: Active Left elbow pain (719.42, M25.522) Status: Active Morbid obesity (278.01, E66.01) Status: Active Need for vaccination (V05.9, Z23) Status: Active Depressive disorder (311, F32.9) Status: Active Cervical paraspinal muscle spasm (728.85, M62.838) Status: Active Chronic cervical radiculopathy (723.4, M54.12) Status: Active 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, 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 Encounter for diabetic foot exam (250.00, E11.9) Status: Active Colonoscopy refused (V64.2, Z53.20) Status: Active Colon cancer screening (V76.51, Z12.11) Status: Active Blurred vision (368.8, H53.8) Status: Active Medication monitoring encounter (V58.83, Z51.81) Status: Active Diabetes mellitus (250.00, E11.9) Status: Active Insomnia (780.52, G47.00) Status: Active Chronic bilateral low back pain with bilateral sciatica (724.2, M54.42) Status: Active Medications Name Dates Details Cymbalta 60 MG Oral Capsule Delayed Release Particles TAKE 1 CAPSULE TWICE DAILY Active Rapaflo 8 MG Oral Capsule TAKE 1 CAPSULE DAILY WITH FOOD. * Refills: 0 Active OneTouch Verio In Vitro Strip Check BG 2x a day * Quantity: 1 Refills: 2 MACRINA NEVES M.D. * Start : 23-Feb-2016 Active 100 Strip Box OneTouch Delica Lancets 33G Check twice daily * Quantity: 100 Refills: 2 MACRINA NEVES M.D. * Start : 23-Feb-2016 Active metFORMIN HCl ER 500 MG Oral Tablet Extended Release 24 Hour two tablets BID * Quantity: 360 Refills: 2 MACRINA NEVES M.D. Active Gabapentin 300 MG Oral Capsule TAKE 2 CAPSULE 3 TIMES DAILY * Quantity: 180 Refills: 0 JESÚS Montelongo MOUSTAFBrit Active Ezetimibe 10 MG Oral Tablet TAKE 1 TABLET BY MOUTH EVERYDAY AT BEDTIME * Quantity: 90 Refills: 3 MADJID M.D., [place]AD * Start : 13-Jun-2016 Active Multi Vitamin Daily TABS * Refills: 0 Active Livalo 4 MG Oral Tablet TAKE 1 TABLET DAILY * Quantity: 90 Refills: 0 GERBER SANTOS M.D. * Start : 21-Dec-2017 Active Myrbetriq 25 MG Oral Tablet Extended Release 24 Hour TAKE 1 TABLET DAILY * Refills: 0 Active buPROPion HCl ER (SR) 150 MG Oral Tablet Extended Release 12 Hour TAKE 1 TABLET DAILY * Refills: 0 Active Abilify 10 MG Oral Tablet TAKE 1 TABLET DAILY. * Refills: 0 Active Cyclobenzaprine HCl - 5 MG Oral Tablet PRN * Refills: 0 Active Naproxen 375 MG Oral Tablet * Refills: 0 Active traZODone HCl - 50 MG Oral Tablet TAKE 1 TABLET AT BEDTIME NEEDED FOR SLEEP. * Quantity: 30 Refills: 2 MACRINA NEVES M.D. * Start : 25-Jan-2019 Active Allergies and Adverse Reactions Name Dates [...] Z86.39) Status: Resolved Procedures Procedure Dates Details [QH] LIPID PANEL WITH REFLEX TO DIRECT LDL Date: 20-Dec-2018 [QLH] HEPATIC FUNCTION PANEL Date: 20-Dec-2018 History of Arthrodesis Lumbar Completed History of Shoulder Surgery Completed Immunization Name Dates Details Influenza, injectable, quadrivalent, preservative free Lot #: [id number] on: 10-Oct-2017 Fluzone Quadrivalent 0.5 ML Intramuscular Suspension on: 11-Dec-2017 Tdap (Boostrix) Lot #: [id number] on: 19-Jun-2018 Fluzone Quadrivalent 0.5 ML Intramuscular Suspension on: 07-Dec-2018 Family History Name Dates Details Family history of congestive heart failure (V17.49, Z82.49) Status: Active Family history of Leaky heart valve (396.3, I38) Status: Active Name Dates Details Family history of myocardial infarction (V17.3, Z82.49) Status: Active Social History Name Dates Details - Status: Name Dates Details Never smoker Vital Signs Date Test Result Details [id number] Physical Findings 16 Status: Comments: PHQ-9 Adult Depression Screening Physical Findings 0 Status: Comments: Alcohol Screen - How many times in the past yr have you had 5 (for M) or 4 (for F) or 4 (for all > 65yrs) or more drinks in a day? [id number] BP Systolic 126 mm[Hg] Status: Comments: Location: LUE; Position: Sitting BP Diastolic 94 mm[Hg] Status: Comments: Location: LUE; Position: Sitting Height 63 in Status: Weight 233 lb Status: Body Mass Index Calculated 41.27 kg/m2 Status: Body Surface Area Calculated 2.06 m2 Status: Temperature 97.8 f Status: Comments: Method: Temporal Heart Rate 92 /min Status: Respiration Rate 16 /min Status: Results Date Description Value Details [id number] [O] Hemoglobin A1c (in office) HEMOGLOBIN A1c 10.2 (Abnormal) Plan of Care Name Dates Details Planned Observations Planned Goals not documented Planned Encounters Appointment; MACRINA NEVES M.D. On: 26-Apr-2019 10:00 Appointment; GERBER SANTOS M.D. On: 19-Dec-2019 9:00 Interventions Provided Medication Changes* Ezetimibe 10 MG Oral Tablet - Renew Instructions Name Dates Details Instructions not documented Encounters Appointment; GERBER SANTOS M.D. Encounter Diagnosis: Problem [...] M.D. Encounter Diagnosis: Problem not documented On: 05-Apr-2018 10:00 Appointment; DILLAN GARCIA M.D. Encounter Diagnosis: Problem not documented On: 08-Jun-2018 10:00 Appointment; RUSSELL PATE M.D. Encounter Diagnosis: Problem not documented On: 19-Jun-2018 8:45 Appointment; ELIAZAR LEIGH NP Encounter Diagnosis: Problem not documented On: 16-Jul-2018 14:30 Appointment; DILLAN GARCIA M.D. Encounter Diagnosis: Problem not documented On: 02-Aug-2018 15:15 Appointment; DILLAN GARCIA M.D. Encounter Diagnosis: Problem not documented On: 16-Aug-2018 11:15 Appointment; ELIAZAR LEIGH NP Encounter Diagnosis: Problem not documented On: 12-Sep-2018 10:30 Appointment; MACRINA NEVES M.D. Encounter Diagnosis: Problem not documented On: 19-Sep-2018 9:15 Appointment; GERBER SANTOS M.D. Encounter Diagnosis: Problem not documented On: 20-Dec-2018 9:00 Appointment; MACRINA NEVES M.D. Encounter Diagnosis: Problem not documented On: 25-Jan-2019 10:15 Appointment; MACRINA NEVES M.D. Encounter Diagnosis: Problem not documented On: 29-Jan-2019 10:45
--- OUTSIDE RECORDS SUMMARY | 2019-07-04 16:55 | XMS REPORT | Summary of Care ---
Author Author Tia Mckeon M.A. Unknown Address Unknown Phone Unavailable Care Team Providers Care Wool Hat Hydraulicker Name Role Phone PURA Montelongo, MACRINA Unavailable Unavailable DANIELLE Montelongo, GERBER Unavailable Unavailable PURA PARHAM AK, MACRINA Harrell Unavailable Unavailable MIMI MOLINA AK, RORY Unavailable Unavailable RIO PARHAM, RUSSELL Chung Unavailable Unavailable HONORIO PARHAM AK, ZENAIDA CARTER Unavailable Unavailable DANIELLE PARHAM, GERBER [...] Medication monitoring encounter (V58.83, Z51.81) Status: Active Insomnia (780.52, G47.00) Status: Active Chronic bilateral low back pain with bilateral sciatica (724.2, M54.42) Status: Active Diabetes mellitus (250.00, E11.9) Status: Active Medications Name Dates Details Cymbalta [...] daily * Quantity: 100 Refills: 2 MACRINA ENVES M.D. * Start : 23-Feb-2016 Active metFORMIN HCl ER 500 MG Oral Tablet Extended Release 24 Hour two tablets BID * Quantity: 360 Refills: 2 MACRINA NEVES M.D. Active Gabapentin 300 MG Oral Capsule TAKE 2 CAPSULE 3 TIMES DAILY * Quantity: 180 Refills: 0 MACRINA NEVES M.D. Active Ezetimibe 10 MG Oral Tablet TAKE 1 TABLET BY MOUTH EVERYDAY AT BEDTIME * Quantity: 90 Refills: 3 GERBER SANTOS M.D. * Start : 13-Jun-2016 Active Multi Vitamin Daily TABS * Refills: 0 Active Livalo 4 MG Oral Tablet TAKE 1 TABLET DAILY * Quantity: 90 Refills: 0 DANIELLE Montelongo BISHOPDILLONAniyah * Start : 21-Dec-2017 Active Myrbetriq 25 [...] FOR SLEEP. * Quantity: 30 Refills: 2 EZRA NEVES M.D.Y * Start : 25-Jan-2019 Active Allergies and [...] Z86.39) Status: Resolved Procedures Procedure Dates Details History of Arthrodesis Lumbar Completed History of Shoulder Surgery Completed Immunization Name Dates Details Influenza, injectable, quadrivalent, preservative free Lot #: [id number] on: 10-Oct-2017 Fluzone Quadrivalent 0.5 ML Intramuscular [...] smoker Vital Signs Date Test Result Details :45 BP Systolic 127 mm[Hg] Status: Comments: Location: LUE; Position: Sitting BP Diastolic 83 mm[Hg] Status: Comments: Location: LUE; Position: Sitting Height 63 in Status: Weight 241 lb Status: Body Mass Index Calculated 42.69 kg/m2 Status: Body Surface Area Calculated 2.09 m2 Status: Temperature 98.3 f Status: Comments: Method: Temporal Heart Rate 95 /min Status: Respiration Rate 16 /min Status: Results Date Description Value Details :57 [O] Hemoglobin A1c (in office) HEMOGLOBIN A1c 6.7% Plan of Care Name Dates Details Planned Observations Planned Goals not documented Planned Encounters Appointment; GEREBR SANTOS M.D. On: 19-Dec-2019 9:00 Interventions Provided Medication Changes* Gabapentin 300 MG Oral Capsule - Renew Labs/Procedures/Imaging* [O] Hemoglobin A1c (in office); Done: 01 May 2019 Instructions Name Dates Details Instructions not documented [...] documented On: 19-Jun-2018 8:45 Appointment; ELIAZAR LEIGH APRN Encounter Diagnosis: Problem not documented On: 16-Jul-2018 14:30 Appointment; DILLAN GARCIA M.D. Encounter Diagnosis: Problem not documented On: 02-Aug-2018 15:15 Appointment; DILLAN GARCIA M.D. Encounter Diagnosis: Problem not documented On: 16-Aug-2018 11:15 Appointment; ELIAZAR LEIGH APRN Encounter Diagnosis: Problem not documented On: 12-Sep-2018 10:30 Appointment; MACRINA NEVES M.D. Encounter Diagnosis: Problem not documented On: 19-Sep-2018 9:15 Appointment; GERBER SANTOS M.D. Encounter Diagnosis: Problem not documented On: 20-Dec-2018 9:00 Appointment; MACRINA NEVES M.D. Encounter Diagnosis: Problem not documented On: 25-Jan-2019 10:15 Appointment; MACRINA NEVES M.D. Encounter Diagnosis: Problem not documented On: 29-Jan-2019 10:45 Appointment; MACRINA NEVES M.D. Encounter Diagnosis: Problem not documented On: 01-May-2019 10:00
--- OUTSIDE RECORDS SUMMARY | 2019-07-04 16:55 | XMS REPORT ---
Author Author [facility] Address Unknown Phone Unavailable Care Team Providers Care Technical Solution Architect Name Role Phone PURA PARHAM, Sharri SCHRADER PP Ranjeet MENARD Unavailable Unavailable Payers Payer Name Policy Type Policy Number Effective Date Expiration Date Ap Health Plan Indemnity [id number] 2001 00:00:00 Problems This patient has no known problems. Allergies, Adverse Reactions, Alerts Allergy Name Allergy Type Status Severity Reaction(s) Onset Date Inactive Date Treating Clinician Comments No Known Allergies DA Active U 2019-01-17 00:00:00 Hydrocodone Allergy to Substance Active Unknown 2018-02-16 00:00:00 Acetaminophen Allergy to Substance Active Unknown 2018-02-16 00:00:00 Pregabalin Allergy to Substance Active Unknown 2018-02-16 00:00:00 No Known Drug Intolerances DA Active U 2008-09-01 00:00:00 Medications This patient has no known medications. Procedures and Interventions Procedure Date / Time Performed Performing Clinician Computed tomography of brain without radiopaque contrast 2018-02-16 00:00:00 JUDITH MENARD Encounters Start Date/Time End Date/Time Encounter Type Admission Type Attending Clinicians Care Facility Care Department Encounter ID 2018-02-16 22:02:00 2018-02-17 01:03:00 Departed Emergency Room 1 JUDITH MENARD [facility] [id number] Results Test Description Test Time Test Comments Text Results Atomic Results Result Comments - CT ABD PELVIS W/CONT 2019-01-17 16:27:00 Name: DAVIE WILD [facility] : 1965 Age/S: 53 / M [address] [facility] Unit #: [id number] Loc: [place] [address] Phys: Jerod Constantino MD Acct: [id number] Dis Date: Status: REG ER PHONE #: [phone] Exam Date: 01/17/2019 1612 FAX #: [phone] Reason: RLQ pain EXAMS: CPT CODE: [id number] CT ABD PELVIS W/CONT 14380 REASON FOR EXAM: RLQ pain EXAM ORDER DATE: 01/17/2019 2:57 PM Ordering: Jerod Constantino MD Attending:Jerod Constantino MD Location:[facility] PROCEDURE: - CT ABD PELVIS W/CONT COMPARISON: FINDINGS: CT images of the abdomen and pelvis were obtained with IV and without oral contrast at 5mm. Dose modulation, iterative reconstruction, and/or weight based adjustment of the MA/KV was utilized to reduce the radiation dose to as low as reasonably achievable. Intravenous contrast: 100cc of Omnipaque 370. The liver, spleen, pancreas are grossly within normal limits. The gallbladder is unremarkable by CT The kidneys are within normal limits. The urinary bladder is unremarkable. The colon, small bowel, and stomach are within normal limits without evidence of obstruction. The appendix is unremarkable. No evidence of free air or free fluid. IMPRESSION: No acute findings in the abdomen at 1620 Reported and signed by: Tee Jay M.D. CC: Jerod Constantino MD Technologist:Hina Hoyos RT(R)(CT) CTDI: 15.09 DLP: 1500 Trnscb Date/Time: 01/17/2019 (9052) Eveline Orig Print D/T: S: 01/17/2019 (5607) PAGE 1 Signed Report URINALYSIS COMPLETE 2019-01-17 15:51:00 UA COLOR (test code=COLU) YELLOW YELLOW UA APPEARANCE (test code=APPU) CLEAR CLEAR UA GLUCOSE DIPSTICK (test code=DGLUU) 1000 (3+) mg/dL NEGATIVE UA BILIRUBIN DIPSTICK (test code=BILU) NEGATIVE mg/dL NEGATIVE UA KETONE DIPSTICK (test code=KETU) neg mg/dL NEGATIVE UA SPECIFIC GRAVITY (test code=SGU) 1.010 1.001-1.035 UA BLOOD DIPSTICK (test code=SURINDER) 25 (1+) Regan/uL NEGATIVE UA PH DIPSTICK (test code=LETY) 6.5 5.0-8.0 UA PROTEIN DIPSTICK (test code=PROU) neg mg/dL Neg-15 UA UROBILINIOGEN DIPSTICK (test code=URO) norm mg/dL 0.0-0.2 UA NITRITE DIPSTICK (test code=AKBAR) NEGATIVE NEGATIVE UA LEUKOCYTE ESTERASE DIPSTICK (test code=LEUU) neg uL NEGATIVE UA WBC (test code=WBCU) NONE SEEN per HPF 0-5 UA RBC (test code=RBCU) 0-2 per HPF 0-5 UA EPITHELIAL CELLS (test code=EPIU) Rare (0-1/hpf) per HPF Few UA BACTERIA (test code=BACU) FEW per HPF NONE Urine Source? Clean CatchURINALYSIS [id number] 15:46:00* Test Item Value Reference Range Comments UA COLOR (test code=COLU) YELLOW YELLOW UA APPEARANCE (test code=APPU) CLEAR CLEAR UA GLUCOSE DIPSTICK (test code=DGLUU) 1000 (3+) mg/dL NEGATIVE UA BILIRUBIN DIPSTICK (test code=BILU) NEGATIVE mg/dL NEGATIVE UA KETONE DIPSTICK (test code=KETU) neg mg/dL NEGATIVE UA SPECIFIC GRAVITY (test code=SGU) 1.010 1.001-1.035 UA BLOOD DIPSTICK (test code=SURINDER) 25 (1+) Regan/uL NEGATIVE UA PH DIPSTICK (test code=LETY) 6.5 5.0-8.0 UA PROTEIN DIPSTICK (test code=PROU) neg mg/dL Neg-15 UA UROBILINIOGEN DIPSTICK (test code=URO) norm mg/dL 0.0-0.2 UA NITRITE DIPSTICK (test code=AKBAR) NEGATIVE NEGATIVE UA LEUKOCYTE ESTERASE DIPSTICK (test code=LEUU) neg uL NEGATIVE UA WBC (test code=WBCU) per HPF 0-5 UA RBC (test code=RBCU) per HPF 0-5 UA EPITHELIAL CELLS (test code=EPIU) per HPF Few UA BACTERIA (test code=BACU) per HPF NONE Urine Source? Clean Catch- XR CHEST 1 [id number] 15:44:00 Name: DAVIE WILD [facility] : 1965 Age/S:53 /M [address] [facility] Unit#:[id number] Loc: [place] [address] Phys: Jerod Constantino MD Dis Date: PHONE #: [phone] Status: REG ER FAX #: [phone] Exam Date: 01/17/2019 Reason: AP EXAMS: CPT CODE: [id number] XR CHEST 1 V 31903 REASON FOR EXAM: AP EXAM ORDER DATE: 01/17/2019 2:50 PM Ordering: Jerod Constantino MD Attending:Jerod Constantino MD Location:[facility] PROCEDURE: - XR CHEST 1 V COMPARISON: FINDINGS: Portable AP frontal view of the chest obtained at 3:42 PM shows clear lungs without evidence of consolidation. There is no evidence of effusion. The heart size is within normal limits. Pulmonary vasculatures are unremarkable. IMPRESSION: No active disease. at 4955 Reported and signed by: Tee Jay M.D. CC: Juan Constantino MD Technologist: Hina Hoyos RT(R)(CT) Trnscrpt Data: 01/17/2019 (7308) t.AMNAR.VTL Orig Print D/T: S: 01/17/2019 (5992) PAGE 1 Signed Report - DUP AB/PEL/SC [id number] 15:43:00 Name: DAVIE WILD [facility] : 1965 Age/S: 53 / M [address] [facility] Unit #: [id number] Loc: [place] [address] Phys: Jerod Constantino MD Acct: [id number] Dis Date: Status: REG ER PHONE #: [phone] Exam Date: 01/17/2019 1525 FAX #: [phone] Reason: R test pain EXAMS: CPT CODE: [id number] DUP AB/PEL/SC COMP 60921 REASON FOR EXAM: R test pain EXAM ORDER DATE: 01/17/2019 2:57 PM Ordering: Jerod Constantino MD Attending:Jerod Constantino MD Location:[facility] PROCEDURE: - US SCROTUM AND CNTS, - DUP AB/PEL/SC COMP FINDINGS: The right testicle measures 3.9 x 2.5 cm. The left testicle measures 3.9 x 2.2 cm. No evidence of testicular mass. No evidence of abscess. Unremarkable testicular flow is seen. Duplex scans of the testicular arteries were performed. Ann scale images were supplemented with color-flow Doppler. Doppler flow velocity analysis (duplex Doppler) was performed The right epididymis was not seen. The left epididymis measures 1 x 0.7 cm. No evidence of epididymitis. No evidence of varicoceles. No evidence of hydrocele IMPRESSION: Small microliths within the testes bilaterally. No evidence of te sticular torsion. Nonvisualization of the right epididymis E lectronically Signed by Jayda Jay on 01/17/2019 at 1543 Reported and signed by: Tee Jay M.D. CC: Jerod Constantino MD Technologist: Rina Andino [facility] Trnscb Date/Time: 01/17/2019 (1543) Eveline Orig Print D/T: S: 01/17/2019 (8565) Probe: PAGE 1 Signed Report - US SCROTUM AND [id number] 15:43:00 Name: DAVIE WILD [facility] : 1965 Age/S: 53 / M [address] [facility] Unit #: [id number] Loc: [place] [address] Phys: Jerod Constantino MD Acct: [id number] Dis Date: Status: REG ER PHONE #: [phone] Exam Date: 01/17/2019 1525 FAX #: [phone] Reason: R test pain EXAMS: CPT CODE: [id number] US SCROTUM AND CNTS 84401 REASON FOR EXAM: R test pain EXAM ORDER DATE: 01/17/2019 2:57 PM Ordering: Jerod Constantino MD Attending:Jerod Constantino MD Location:[facility] PROCEDURE: - US SCROTUM AND CNTS, - DUP AB/PEL/SC COMP FINDINGS: The right testicle measures 3.9 x 2.5 cm. The left testicle measures 3.9 x 2.2 cm. No evidence of testicular mass. No evidence of abscess. Unremarkable testicular flow is seen. Duplex scans of the testicular arteries were performed. Ann scale images were supplemented with color-flow Doppler. Doppler flow velocity analysis (duplex Doppler) was performed The right epididymis was not seen. The left epididymis measures 1 x 0.7 cm. No evidence of epididymitis. No evidence of varicoceles. No evidence of hydrocele IMPRESSION: Small microliths within the testes bilaterally. No evidence of te sticular torsion. Nonvisualization of the right epididymis E lectronically Signed by Jayda Jay on 01/17/2019 at 1543 Reported and signed by: Tee Jay M.D. CC: Jerod Constantino MD Technologist: Rina Andino RDLA Trnscb Date/Time: 01/17/2019 (9833) Eveline Orig Print D/T: S: 01/17/2019 (7230) Probe: PAGE 1 Signed Report COMPREHENSIVE METABOLIC [id number] 15:34:00* Test Item Value Reference Range Comments SODIUM (test code=NA) 135 mmol/L 136-145 POTASSIUM (test code=K) 4.1 mmol/L 3.5-5.1 CHLORIDE (test code=CL) 100 mmol/L 101-109 CARBON DIOXIDE (test code=CO2) 26.2 mmol/L 21-32 ANION GAP (test code=GAP) 13 mmol/L 10-20 GLUCOSE (test code=GLU) 388 mg/dL 74-106 BLOOD UREA NITROGEN (test code=BUN) 15 mg/dL 3-21 CREATININE (test code=CREAT) 0.86 mg/dL 0.55-1.3 BUN/CREATININE RATIO (test code=BUN/CREA) 17.4 10-20 TOTAL PROTEIN (test code=PROT) 7.1 g/dL 6.5-8.4 ALBUMIN (test code=ALB) 3.5 g/dL 3.4-4.8 GLOBULIN (test code=GLOB) 3.6 G/DL 1-10 ALBUMIN/GLOBULIN RATIO (test code=A/G) 0.97 RATIO 0.75-1.50 CALCIUM (test code=CA) 9.2 mg/dL 8.4-10.2 BILIRUBIN TOTAL (test code=BILT) 0.30 mg/dL 0.0-1.0 SGOT/AST (test code=AST) 11 U/L 6-32 SGPT/ALT (test code=ALT) 18 U/L 12-78 Note: Change in REFERENCE RANGE due to new reagent method. ALKALINE PHOSPHATASE TOTAL (test code=ALKP) 116 U/L 38-126 [id number] 15:34:00* Test Item Value Reference Range Comments LIPASE (test code=LIP) 116 U/L 128-270 [id number] 15:34:00* Test Item Value Reference Range Comments MAGNESIUM (test code=MAG) 2.0 mg/dL 1.6-2.3 CPK-MB [id number] 15:34:00* Test Item Value Reference Range Comments CREATINE KINASE (CK) (test code=CK) 66 U/L 39-308 CKMB (test code=CKMBT) <0.5 ng/mL 0.0-5.0 RELATIVE % INDEX (test code=REL%) 0.8 % [id number] 15:34:00* Test Item Value Reference Range Comments TROPONIN-I (test code=TROPI) <0.015 ng/mL 0.00-0.056 B-TYPE NATRIURETIC [id number] 15:26:00* Test Item Value Reference Range Comments B-TYPE NATRIURETIC PEPTIDE (test code=BNP) < 5.0 pg/mL 0-100 COMPREHENSIVE METABOLIC [id number] 15:22:00* Test Item Value Reference Range Comments SODIUM (test code=NA) 135 mmol/L 136-145 POTASSIUM (test code=K) 4.1 mmol/L 3.5-5.1 CHLORIDE (test code=CL) 100 mmol/L 101-109 CARBON DIOXIDE (test code=CO2) 26.2 mmol/L 21-32 ANION GAP (test code=GAP) 13 mmol/L 10-20 GLUCOSE (test code=GLU) 388 mg/dL 74-106 BLOOD UREA NITROGEN (test code=BUN) 15 mg/dL 3-21 CREATININE (test code=CREAT) 0.86 mg/dL 0.55-1.3 BUN/CREATININE RATIO (test code=BUN/CREA) 17.4 10-20 TOTAL PROTEIN (test code=PROT) gram/dL 6.4-8.2 ALBUMIN (test code=ALB) g/dL 3.4-5.0 GLOBULIN (test code=GLOB) g/dL 2.7-4.2 ALBUMIN/GLOBULIN RATIO (test code=A/G) 0.75-1.50 CALCIUM (test code=CA) 9.2 mg/dL 8.4-10.2 BILIRUBIN TOTAL (test code=BILT) mg/dL 0.2-1.2 SGOT/AST (test code=AST) IUnit/L 15-37 SGPT/ALT (test code=ALT) U/L 10-69 ALKALINE PHOSPHATASE TOTAL (test code=ALKP) IUnit/L 45-117 [id number] 15:22:00* Test Item Value Reference Range Comments LIPASE (test code=LIP) Unit/L 144-286 [id number] 15:22:00* Test Item Value Reference Range Comments MAGNESIUM (test code=MAG) mg/dL 1.8-2.4 CPK-MB [id number] 15:22:00* Test Item Value Reference Range Comments CREATINE KINASE (CK) (test code=CK) IUnit/L 26-208 CKMB (test code=CKMBT) ng/mL 0-6.0 RELATIVE % INDEX (test code=REL%) % [id number] 15:22:00* Test Item Value Reference Range Comments TROPONIN-I (test code=TROPI) ng/mL 0-0.045 CBC W/AUTO [id number] 15:11:00* Test Item Value Reference Range Comments WHITE BLOOD CELL (test code=WBC) 9.2 K/mm3 4.5-12.5 RED BLOOD CELL (test code=RBC) 5.13 mill/mm3 4.0-5.8 HEMOGLOBIN (test code=HGB) 15.3 gram/dL 13.0-17.5 HEMATOCRIT (test code=HCT) 45.7 % 42.0-52.0 MEAN CELL VOLUME (test code=MCV) 89.1 fL 80-98 MEAN CELL HGB (test code=MCH) 29.8 picogram 27.0-33.0 MEAN CELL HGB CONCETRATION (test code=MCHC) 33.5 gram/dL 33.0-36.0 RED CELL DISTRIBUTION WIDTH (test code=RDW) 12.1 % 11.6-16.2 RED CELL DISTRIBUTION WIDTH SD (test code=RDW-SD) 40.0 fL 37.0-51.0 PLATELET COUNT (test code=PLT) 229 K/mm3 150-450 MEAN PLATELET VOLUME (test code=MPV) 9.2 fL 6.7-11.0 NEUTROPHIL % (test code=NT%) 70.2 % 39.0-69.0 LYMPHOCYTE % (test code=LY%) 16.8 % 25.0-55.0 MONOCYTE % (test code=MO%) 5.0 % 0.0-10.0 EOSINOPHIL % (test code=EO%) 7.0 % 0.0-5.0 BASOPHIL % (test code=BA%) 0.7 % 0.0-1.0 NEUTROPHIL # (test code=NT#) 6.45 K/mm3 1.8-7.7 LYMPHOCYTE # (test code=LY#) 1.54 K/mm3 1.0-5.0 MONOCYTE # (test code=MO#) 0.46 K/mm3 0-0.8 EOSINOPHIL # (test code=EO#) 0.64 K/mm3 0.0-0.5 BASOPHIL # (test code=BA#) 0.06 K/mm3 0.0-0.2 MANUAL DIFF REQUIRED (test code=MDIFF) NO CT BRAIN [id number] 22:59:00 [place] [id number] [place] [address] Patient Name: DAVIE WILD MR #: [id number] : 1965 Age/Sex: 52/M Req #: [id number] Adm Physician: Ordered by: JUDITH MENARD MD Report #: [id number] Location: ER Room/Bed: Procedure: 1207-[address]/CT BRAIN WO Exam Date: 02/16/18 Exam Time: 45 REPORT STATUS: Signed EXAMINA TION: Head CT HISTORY: Headache, hypertension, left-sided head and neck pa in for the last 2 days COMPARISON: None. TECHNIQUE: Multidetector axial im ages were obtained without contrast from the foramen magnum to the vertex . T he images were reconstructed using brain and bone algorithms. Thin section br ain images were reformatted into coronal and sagittal planes. Image quality: Motion/streaking artifact limits the evaluation of the skull base and posteri or cranial fossa. Dose modulation, iterative reconstruction, and/or weight bas ed adjustment of the mA/kV was utilized to reduce the radiation dose to as low as reasonably achievable. FINDINGS: Parenchyma: 1. No a bnormal densities. 2. No mass or hemorrhage. No CT evidence of acute territor ial vascular insult. Extra-axial spaces:No abnormal density. No extra-axial fluid collections Brain volume: Normal for age. Willard tricles: No hydrocephalus or displacement. Arteries: No density suggest tania of thrombus. Dural sinuses: No abnormal density. Extra-axial spaces: No abnormal density. Foramen magnum: No mass, Chiari malformati on, or basilar invagination. Sella: No obvious mass. Paranasal/ mastoid sinuses: Imaged portions unremarkable. Skull/Scalp: No lytic or blastic lesions. No fractures. IMPRESSION: Normal head CT. Sign ed by: Dr. Mary Lechuga M.D. on 02/16/2018 11:05 PM Dictated By: MARY ARGUETA MD 04 Transcribed By : DEIDRA on 02/16/182304 COPY TO: JUDITH MENARD MD
--- OUTSIDE RECORDS SUMMARY | 2019-07-04 16:56 | XMS REPORT | Summary of Care ---
Author Author Candida Meza M.A. Organization Unknown Address [facility] Phone Unavailable Care Team Providers Care Hose Sprayer Name Role Phone Candida Meza M.A. Unavailable Unavailable PURA Montelongo, MACRINA Unavailable Unavailable DANIELLE Montelongo, GERBER Unavailable Unavailable PURA PARHAM AL, MACRINA Harrell Unavailable Unavailable MIMI MOLINA AL, RORY Unavailable Unavailable RIO PARHAM, RUSSELL Chung Unavailable Unavailable HONORIO PARHAM AL, ZENAIDA CARTER Unavailable Unavailable DANIELLE PARHAM, GERBER [...] Abnormal weight gain (783.1, R63.5) Status: Active Chronic left shoulder pain (719.41, [...] Status: Active Insomnia (780.52, G47.00) Status: Active Diabetes mellitus (250.00, E11.9) Status: Active Chronic bilateral low back pain with bilateral sciatica (724.2, M54.42) Status: Active Spondylosis without myelopathy or radiculopathy, 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 * Refills: 0 Active OneTouch Verio In Vitro Strip Check BG 2x a day * Quantity: 1 Refills: 2 PURA Montelongo, MACRINA * Start : 23-Feb-2016 Active 100 Strip Box OneTouch Delica Lancets 33G Check twice daily * Quantity: 100 Refills: 2 PURA Montelongo, MACRINA * Start : 23-Feb-2016 Active metFORMIN HCl ER 500 MG Oral Tablet Extended Release 24 Hour two tablets BID * Quantity: 360 Refills: 2 MACRINA NEVES M.D. Active Gabapentin 100 MG Oral Capsule TAKE 2 CAPSULE BEDTIME * Quantity: 180 Refills: 0 MACRINA NEVES M.D. Active Ezetimibe 10 MG Oral Tablet TAKE 1 TABLET BY MOUTH EVERYDAY AT BEDTIME * Quantity: 90 Refills: 3 GERBER SATNOS M.D. * Start : 13-Jun-2016 Active Multi Vitamin Daily TABS * Refills: 0 Active Livalo 4 MG Oral Tablet TAKE 1 TABLET BY MOUTH EVERY DAY * Quantity: 90 Refills: 3 DANIELLE Montelongo GERBER * Start : 21-Dec-2017 Active Myrbetriq 25 [...] FOR SLEEP. * Quantity: 30 Refills: 2 PURA Montelongo MACRINA * Start : 25-Jan-2019 Active Allergies and [...] Influenza, injectable, quadrivalent, preservative free Lot #: [id number] on: 10-Oct-2017 Fluzone Quadrivalent 0.5 ML Intramuscular [...] Details - Status: Name Dates Details Never smoked tobacco (finding) Vital Signs Date Test Result Details No Known Vitals to report Results Date Description Value Details Results not documented Plan of Care Name Dates Details Planned Observations Planned Goals not documented Planned Encounters Appointment; MACRINA NEVES M.D. On: 31-Jul-2019 10:15 Appointment; GERBER SANTOS M.D. On: 19-Dec-2019 9:00 Interventions Provided Medication Changes* Gabapentin 100 MG Oral Capsule - Renew Instructions Name Dates Details Instructions [...]
--- OUTSIDE RECORDS SUMMARY | 2019-07-04 16:56 | XMS REPORT | Summary of Care ---
Author Author DANIELLE Montelongo, GERBER Organization Unknown Address Unknown Phone Unavailable Care Team Providers Care Nurse Case Management Name Role Phone PURA Montelongo, MACRINA Unavailable [...] M47.816) Status: Active Medications Name Dates Details Dianne Mcgee In Vitro Strip Check BG 2x a day Quantity: 1 MACRINA NEVES M.D. * Start : 23-Feb-2016 Active 100 Strip Box Dianne Avelar Lancets 33G Check twice daily * Quantity: [...] EVERY DAY * Quantity: 90 Refills: 3 GERBER SANTOS [...] Montelongo MACRINA * Start : 25-Jan-2019 Active Rapaflo 8 MG Oral Capsule TAKE 1 CAPSULE DAILY WITH FOOD. * Refills: 0 Active Cymbalta 60 MG Oral Capsule Delayed Release Particles TAKE 1 CAPSULE TWICE DAILY * Refills: 0 Active Allergies and Adverse Reactions Name Dates [...] Influenza, injectable, quadrivalent, preservative free Lot #: [id number] on: 10-Oct-2017 Fluzone Quadrivalent 0.5 ML Intramuscular [...] (finding) Vital Signs Date Test Result Details :45 Systolic blood pressure 127 mm[Hg] Status: Comments: Location: LUE; Position: Sitting Diastolic blood pressure 83 mm[Hg] Status: Comments: Location: LUE; Position: Sitting Body height 63 in Status: Weight 241 lb Status: Body mass index (BMI) [Ratio] 42.69 kg/m2 Status: Body surface area Derived from formula 2.09 m2 Status: Body temperature 98.3 f Status: Comments: Method: Temporal Heart Rate 95 /min Status: Respiratory rate 16 /min Status: Results Date Description Value Details :57 [O] Hemoglobin A1c (in office) HEMOGLOBIN A1c 6.7% Plan of Care Name Dates Details Planned Observations Planned Goals not documented Planned Encounters Appointment; MACRINA NEVES M.D. On: 31-Jul-2019 10:15 Appointment; GERBER SANTOS M.D. On: 19-Dec-2019 9:00 Interventions Provided Medication Changes* Livalo 4 MG Oral Tablet - Renew Instructions Name [...]
--- OUTSIDE RECORDS SUMMARY | 2019-07-04 16:56 | XMS REPORT | Summary of Care ---
Author Author PURA Montelongo, MACRINA Cunningham Unknown Address Unknown Phone Unavailable Care Team Providers Care Matrix Inspector Name Role Phone PURA Montelongo, MACRINA Unavailable Unavailable DANIELLE Montelongo, GERBER Unavailable Unavailable PURA PARHAM OR, MACRINA Harrell Unavailable Unavailable MIMI MOLINA OR, RORY Unavailable Unavailable RIO PARHAM, RUSSELL Chung Unavailable Unavailable HONORIO PARHAM OR, ZENAIDA CARTER Unavailable Unavailable DANIELLE PARHAM, GERBER [...] DAILY * Quantity: 90 Refills: 0 DANIELLE Motnelongo BISHOPDILLONAniyah * Start : 21-Dec-2017 Active Myrbetriq [...] Influenza, injectable, quadrivalent, preservative free Lot #: [id number] on: 10-Oct-2017 Fluzone Quadrivalent 0.5 ML Intramuscular [...] A1c (in office); Done: 01 May 2019 Plan* cont current meds * diet and exercise * f/u prn or 3 months. Instructions Name Dates Details Instructions not documented [...]
--- OUTSIDE RECORDS SUMMARY | 2019-07-04 16:56 | XMS REPORT | Summary of Care ---
Author Author JOSE Montelongo, DILLAN Cunningham Unknown Address [facility] Phone Unavailable Care Team Providers Care Claims Adjudicator Name Role Phone PURA Montelongo, MACRINA Unavailable Unavailable DANIELLE Montelongo, GERBER Unavailable Unavailable PURA PARHAM NM, MACRINA Harrell Unavailable Unavailable MIMI MOLINA NM, RORY Unavailable Unavailable RIO PARHAM, RUSSELL Chung Unavailable Unavailable HONORIO PARHAM NM, ZENAIDA CARTER Unavailable Unavailable DANIELLE PARHAM, GERBER [...] Release Particles TAKE 1 CAPSULE TWICE DAILY M.A. Active Rapaflo 8 MG Oral Capsule TAKE 1 CAPSULE DAILY WITH FOOD. * Refills: 0 M.A. Active OneTouch Verio In Vitro Strip Check BG 2x a day * Quantity: 1 Refills: 2 PURA Zamora.Piter, MACRINA * Start : 23-Feb-2016 Active 100 Strip Box OneTouch Delica Lancets 33G Check twice daily * Quantity: 100 Refills: 2 PURA M.Piter, MACRINA * Start : 23-Feb-2016 Active metFORMIN HCl ER 500 MG Oral Tablet Extended Release 24 Hour two tablets BID * Quantity: 360 Refills: 2 PURA M.MACRINA Dumas Active Gabapentin 300 MG Oral Capsule TAKE 2 CAPSULE 3 TIMES DAILY * Quantity: 180 Refills: 0 PURA M.MACRINA Dumas Active Ezetimibe 10 MG Oral Tablet TAKE 1 TABLET BY MOUTH EVERYDAY AT BEDTIME * Quantity: 90 Refills: 3 GERBER SANTOS M.D. * Start : 13-Jun-2016 Active Multi Vitamin Daily TABS * Refills: 0 M.A. Active Livalo 4 MG Oral Tablet TAKE 1 TABLET BY MOUTH EVERY DAY * Quantity: 90 Refills: 3 DANIELLE Montelongo, BISHOPDILLONAniyah * Start : 21-Dec-2017 Active Myrbetriq 25 MG Oral Tablet Extended Release 24 Hour TAKE 1 TABLET DAILY * Refills: 0 M.A. Active buPROPion HCl ER (SR) 150 MG Oral Tablet Extended Release 12 Hour TAKE 1 TABLET DAILY * Refills: 0 M.A. Active Abilify 10 MG Oral Tablet TAKE 1 TABLET DAILY. * Refills: 0 M.A. Active Cyclobenzaprine HCl - 5 MG Oral Tablet PRN * Refills: 0 M.A. Active Naproxen 375 MG Oral Tablet * Refills: 0 M.A. Active traZODone HCl - 50 MG Oral [...] Influenza, injectable, quadrivalent, preservative free Lot #: [id number] on: 10-Oct-2017 Fluzone Quadrivalent 0.5 ML Intramuscular [...] Appointment; GERBER SANTOS M.D. On: 19-Dec-2019 9:00 Instructions Name Dates Details Instructions not [...] not documented On: 16-Jul-2018 14:30 Appointment; DILLAN AGRCIA M.D. Encounter Diagnosis: Problem not documented On: [...]
--- OUTSIDE RECORDS SUMMARY | 2019-07-04 16:56 | XMS REPORT | Summary of Care ---
Author Author Mary Torres R.N. Unknown Address [facility] Phone Unavailable Care Team Providers Care Sewer Pipe Cleaner Name Role Phone PURA Montelongo, MACRINA Unavailable Unavailable DANIELLE Montelongo, GERBER Unavailable Unavailable PURA PARHAM IN, MACRINA Harrell Unavailable Unavailable MIMI MOLINA IN, RORY Unavailable Unavailable RIO PARHAM, RUSSELL Chung Unavailable Unavailable HONORIO PARHAM IN, ZENAIDA CARTER Unavailable Unavailable DANIELLE PARHAM, GERBER [...] * Quantity: 90 Refills: 3 DANIELLE Montelongo, GERBER * Start : 21-Dec-2017 Active Myrbetriq [...] Influenza, injectable, quadrivalent, preservative free Lot #: [id number] on: 10-Oct-2017 Fluzone Quadrivalent 0.5 ML Intramuscular [...]
[2019-07-04] MEDS ORDERED: SODIUM CHLORIDE 0.9% 1000ML 1,000 ML IV STA ×2 (17:38→18:21)
[2019-07-04] MEDS ORDERED: CEFEPIME 1GM/NS 0.9% 50 ML 50 ML IV STA (17:48)
[2019-07-04 17:59] LABS: BASOPHILS # (AUTO) 0.1 (0.0-0.1); BASOPHILS % 0.9 % (0.0-1.0); EOSINOPHILS # (AUTO) 0.3 (0.0-0.4); EOSINOPHILS % 2.8 % (0.0-6.0); HEMATOCRIT 46.4 % (38.2-49.6); HEMOGLOBIN 16.1 g/dL (14.0-18.0); LYMPHOCYTES # (AUTO) 2.5 (1.0-3.2); LYMPHOCYTES % 27.3 % (18.0-39.1); MEAN CORPUSCULAR HEMOGLOBIN 29.9 pg (28-32); MEAN CORPUSCULAR HGB CONC 34.7 g/dL (31-35); MEAN CORPUSCULAR VOLUME 86.2 fL (81-99); MONOCYTES # (AUTO) 0.7 (0.2-0.8); MONOCYTES % 7.4 % (4.4-11.3); NEUTROPHILS # (AUTO) 5.5 (2.1-6.9); NEUTROPHILS % 61.2 % (38.7-80.0); PLATELET COUNT 312 x10e3/uL (140-360); RED BLOOD COUNT 5.38 x10e6/uL (4.3-5.7); RED CELL DISTRIBUTION WIDTH 13.2 % (11.7-14.4)
[2019-07-04 18:18] LABS: ALANINE AMINOTRANSFERASE 30 IU/L (0-55); ALBUMIN 4.3 g/dL (3.5-5.0); ALBUMIN/GLOBULIN RATIO 1.2 (0.8-2.0); ALKALINE PHOSPHATASE 70 IU/L (40-150); ANION GAP 17.5 mmol/L (8-16); BLOOD UREA NITROGEN 12 mg/dL (7-26); BUN/CREATININE RATIO 13 (6-25); CALCIUM 9.7 mg/dL (8.4-10.2); CARBON DIOXIDE 18 mmol/L (22-29); CHLORIDE 105 mmol/L (98-107); CREATINE KINASE 156 IU/L (30-200); CREATININE, SERUM 0.91 mg/dL (0.72-1.25); EST GLOMERULAR FILTRATION RATE > 60 ML/MIN (60-); GLUCOSE 141 mg/dL (74-118); POTASSIUM 3.5 mmol/L (3.5-5.1); SODIUM 137 mmol/L (136-145)
--- NOTE | 2019-07-04 18:43 | Diagnostic Imaging Report ---
EXAMINATION: CHEST SINGLE (PORTABLE) INDICATION: ^Y ^weakness ^[id number] ^[id number] COMPARISON: None FINDINGS: AP view TUBES and LINES: None. LUNGS: Limited by low lung volumes and body habitus. There is no definite evidence of pneumonia or pulmonary edema. PLEURA: No significant pleural effusion or pneumothorax. HEART AND MEDIASTINUM: The cardiomediastinal silhouette is unremarkable. BONES AND SOFT TISSUES: No acute osseous lesion. Soft tissues are unremarkable. UPPER ABDOMEN: No free air under the diaphragm. IMPRESSION: No definite focal consolidation, considering limitations of this study. Signed by: Dr. Marco Lion MD on 07/04/2019 6:40 PM
[2019-07-04] MEDS ORDERED: DEXTROSE 50% SYRINGE 50 ML IV ONE (20:03)
[2019-07-04] MEDS ORDERED: SODIUM CHLORIDE 0.9% 1000ML 1,000 ML IV ONE (20:45)
[2019-07-04] MEDS ORDERED: SODIUM CHLORIDE 0.9% 1000ML 1,000 ML ONE (20:53)
[2019-07-04] MEDS ORDERED: TRAMADOL HCL 50 MG TAB PO PRN (21:30)
[2019-07-04] MEDS ORDERED: KETOROLAC TROMETHAMINE 30 MG/ML VIAL IV PRN (21:30)
[2019-07-04 23:45] VITALS: BP 137/82
[2019-07-05 01:00] VITALS: BP 137/82
[2019-07-05] MEDS ORDERED: GABAPENTIN300 MG PO (01:13)
[2019-07-05] MEDS ORDERED: RAPAFLO8 MG PO (01:13)
[2019-07-05] MEDS ORDERED: IBUPROFEN400 MG PO (01:13)
[2019-07-05] MEDS ORDERED: ASPIRIN81 MG PO (01:13)
[2019-07-05] MEDS ORDERED: METFORMIN HCL500 MG PO (01:13)
[2019-07-05 07:34] VITALS: BP 125/76
[2019-07-05 08:07] VITALS: BP 125/76
[2019-07-05 12:05] VITALS: BP 130/78
[2019-07-05] MEDS ORDERED: IBUPROFEN 400 MG TAB PO PRN (14:15)
[2019-07-05 14:45] LABS: CLARITY,URINE CLEAR (CLEAR); COLOR,URINE YELLOW (YELLOW); KETONES,URINE NEGATIVE (NEGATIVE); LEUKOCYTE ESTERASE ,URINE NEGATIVE (NEGATIVE); NITRITE,URINE NEGATIVE (NEGATIVE); PROTEIN,URINE DIPSTICK NEGATIVE (NEGATIVE)
[2019-07-05 14:46] LABS: BILIRUBIN,URINE NEGATIVE (NEGATIVE); URINE UROBILINOGEN 0.2 mg/dL (0.2 - 1)
[2019-07-05 15:09] LABS: WBC,URINE (MAN) 0-5 /HPF (0-5)
[2019-07-05] MEDS ORDERED: IBUPROFEN 400 MG TAB PO SCH (15:30)
[2019-07-05] MEDS ORDERED: METFORMIN HCL 500 MG TAB PO SCH (17:00)
--- NOTE | 2019-07-05 17:33 | Progress Note ---
DATE: SUBJECTIVE: Mr. Lincoln is here for dizziness. The patient is a very pleasant 53-year-old comes in with one day not feeling well, dizzy. The patient came to the emergency room. He was admitted. There was a concern he may have pneumonia or COVID, it was sent but this came back negative. The patient is currently feeling much better. REVIEW OF SYSTEMS: He just has a little bit of headache. PHYSICAL EXAMINATION: GENERAL: He is currently alert, oriented, does not seem to be in acute distress. VITAL SIGNS: Stable. Afebrile. HEENT: He is not icteric. NECK: Supple. CHEST: Clear. HEART: S1, S2. ABDOMEN: Soft. Bowel sounds present. No tenderness. EXTREMITIES: No edema. SKIN: No rash. IMPRESSION: A feeling of weakness and dizziness, resolved. Dehydration, concern of viral infection. Can discontinue droplet isolation. From Infectious Disease point of view, we can discharge the patient home. He is feeling better. He is said to push p.o. fluid. Follow up as an outpatient. MD NOE Morales/CHRISTA /[id number]
[2019-07-05] MEDS ORDERED: GABAPENTIN 300 MG CAP PO SCH (21:00)
--- NOTE | 2019-07-05 21:29 | Consultation ---
DATE OF CONSULTATION: 07/05/2019 Pulmonary Medicine Consult REASON FOR REFERRAL: Viral syndrome. HISTORY OF PRESENT ILLNESS: Mr. Lucas is a pleasant 53-year-old gentleman with a viral syndrome. The patient with 3 days of symptoms. He has been having some neck pain, mostly on left side. He is having some associated dizziness. He feels like he wants to faint. The patient is having some bony aches and muscle aches as well. Due to a pattern of worsening, he comes to the emergency room. He was admitted due to weaker appearance as well as clinical fertility. His lactic acid was 4.1. Chest x-ray clear. There is obstructive sleep apnea, but he is off BiPAP, he was given his machine. Moderate GERD. No allergies, no asthma. Normally can walk about 2 blocks, but it limited due to lower back and radiation to the leg pain. PAST MEDICAL HISTORY: Reviewed. BPH, GERD, lumbar back pain, status post surgery, diabetes, intermittent rhinitis. MEDICATIONS: Medication list reviewed per the chart record. Medications include aspirin, gabapentin, ibuprofen, metformin, Rapaflo. ALLERGIES: ACETAMINOPHEN, HYDROCODONE, PREGABALIN. FAMILY HISTORY: Noncontributory to this condition. SOCIAL HISTORY: No smoking. No drinking. No drugs. The patient is retired from post office. He worked for 3 years in the [employer], but was discharged due to injury. He lives with his daughter and a family friend. REVIEW OF SYSTEMS: GENERAL: No weight changes. OPHTHALMOLOGIC: No floaters. ENT: There are no mouth ulcers. ENDOCRINE: No known thyroid condition. PULMONARY: No hemoptysis. CARDIAC: No [place]. GI: No constipation. : No blood in urine. NEUROLOGIC: No seizures. DERMATOLOGIC: No rash. HEMATOLOGIC: There is no rheumatoid arthritis. OBJECTIVE: VITAL SIGNS: Vital signs noted and reviewed per the chart record. GENERAL: No acute distress, alert and calm. HEENT: Normocephalic, atraumatic. NECK: Supple. Throat midline. LUNGS: Bilateral air entry, limited, but clear. CARDIOVASCULAR: S1, S2. No murmurs, rubs, or gallops. ABDOMEN: Soft, nontender, obese. EXTREMITIES: No clubbing. No cyanosis. There is no edema. INTEGUMENT: No rash. No purpura. LABORATORY DATA: Lactic acid reduced to 2.0. platelets. 18 bicarbonate, 12 BUN, 0.9 creatinine. LFTs normal. CK 156. IMPRESSION AND PLAN: 1. Significant lactic acidosis, clinical shock, septic. 2. Sepsis, undifferentiated. 3. Nonspecific syndrome, treated as viral syndrome, acute. 4. Diabetes. 5. Benign prostatic hyperplasia. 6. Chronic lower back pain with some debility. 7. Obstructive sleep apnea, on treatment. 8. Moderate gastroesophageal reflux disease. Th patient received some significant fluid resuscitation. Continue broad-spectrum antibiotics. Await blood cultures. Check UA and urine culture. Check TSH. We wish to mobilize the patient and see if he improves. Thank you very much, Dr. Glover for this consult. Please call for questions. MD PIEDAD Eddy/MODL /[id number]
--- NOTE | 2019-07-05 22:09 | History and Physical ---
HISTORY OF PRESENT ILLNESS: The patient is a 53-year-old male with past medical history positive for hypertension and also history of diabetes, obesity, came to the emergency room complaining of neck pain and dizziness. The patient was evaluated for COVID-19, which came back negative. The patient has absolutely no symptoms for COVID-19. REVIEW OF SYSTEMS: CARDIOVASCULAR: No chest pain or palpitation. RESPIRATORY: No shortness of breath. No cough. GASTROINTESTINAL: No nausea or vomiting. No diarrhea. GENITOURINARY: No frequency. No dysuria. PAST MEDICAL HISTORY: Hypertension and diabetes. ALLERGIES: HE IS ALLERGIC TO TYLENOL, HYDROCODONE, AND LYRICA. SOCIAL HISTORY: He does not smoke. He does not drink. PHYSICAL EXAMINATION: VITAL SIGNS: Blood pressure 130/78, temperature 97.5, heart rate 89 per minute, respiratory rate 18 per minute, oxygen saturation 100%. HEART: Showed regular rhythm. Normal S1 and S2 sound. LUNGS: Clear bilaterally. ABDOMEN: Soft. EXTREMITIES: Show no edema. NECK: Supple. LABORATORY DATA: Urinalysis shows few red blood cells, nothing else. On the CBC; white blood count is normal at 9.02, hemoglobin 16.1, hematocrit 46.4, and platelet count 312,000. On the complete metabolic panel; sodium 137, potassium 3.5, chloride 105, CO2 of 18, BUN 12, creatinine 0.91, GFR is 60, glucose 141, calcium 9.7. AST 25, ALT 30, alkaline phosphatase 70. Creatine kinase 156, CK-MB 220, troponin 0.012, total protein 7.8, albumin 4.3, globulin 3.5. COVID-19 completely negative. Chest x-ray, no focal consolidation. FINAL IMPRESSION: 1. Neck pain. 2. . 3. Uncontrolled diabetes mellitus type 2. 4. . 5. Hypertension. PLAN OF TREATMENT: The patient most likely will be discharged today if okay with Dr. Rosenthal. Initially, the lactic acid was high, but it is back to normal now. The patient was empirically started on cefepime, ibuprofen mg q.6 hours as needed for pain, Toradol 50 mg q.6 hours as needed for severe pain, and tramadol 50 mg q.6 hours as needed for pain. Dr. Rosenthal has been consulted from the Infectious Disease point of view, Dr. Avilez from the Pulmonary point of view. If okay with all the consultants, the patient might be able to go home today. There is absolutely no evidence of fever or any pulmonary issues or any sepsis. The patient is completely asymptomatic, afebrile, white blood count is normal. The patient should be able to go home today if okay with the rest of the consultants. Blood culture has been sent and report is pending, but as I said we do not see any evidence of any infection whatsoever. MD ZULEMA Aj/CHRISTA /[id number]
--- NOTE | 2019-07-05 23:04 | Discharge Summary ---
HISTORY: A 53-year-old male with past medical history positive for hypertension and diabetes, who came to the hospital complaining of neck pain and dizziness. The patient was tested for COVID-19, which came back negative. The patient has no fever, no cough, no shortness of breath, no respiratory symptoms whatsoever. He is only complaining of neck pain, which is chronic neck pain, that has been happening for several years. Blood culture and urine culture have been sent and the report is pending. As I said, there is no evidence of any fevers whatsoever. The patient has been seen by Dr. Rosenthal, Infectious Diseases, and Dr. Avilez for Pulmonary. PHYSICAL EXAMINATION: HEART: Showed regular rhythm with normal S1 and S2 sound. LUNGS: Clear bilaterally. ABDOMEN: Soft. EXTREMITIES: Show no evidence of cyanosis or hematoma. VITAL SIGNS: Temperature 97.5, heart rate 89 per minute, respiratory rate 18 per minute, blood pressure 130/78, oxygen saturation 100%. LABORATORY DATA: On the CBC; white blood count 9.02, hemoglobin 16.1, hematocrit for 46.4, and platelet count 312,000. Lactic acid was initially 3.5, then went up to 4.1 yesterday, and 2.0 is the last one. Magnesium is 1.9. On the BMP; sodium 137, potassium 3.5, chloride 105, CO2 of 18, BUN 12, creatinine 0.91, GFR 60, glucose 141, calcium 9.7, total bilirubin 0.6, AST 25, ALT 30, alkaline phosphatase 70. Creatine kinase 156, troponin 0.012. Total protein 7.8, albumin 4.3, globulin 3.5. Chest x-ray is negative for any significant infiltrate or fluid. Coronavirus test is completely negative. The patient has absolutely no symptoms of any respiratory symptoms except for neck pain, which has been going on for years and weakness and dizziness, which are completely resolved. We have consulted Dr. Jonathan Avilez for Pulmonary Service and Dr. Rosenthal for Infectious Diseases. We are going to wait on the input, if it is okay with them, the patient might be able to go home today since the patient had absolutely no symptoms of any infectious disease condition. The patient is taking aspirin 81 mg daily at home, gabapentin 300 mg at bedtime, metformin 500 mg twice a day, Rapaflo 8 mg daily. So, this is the tentative discharge summary pending whether or not the other consultants are okay for the patient to be discharged and follow with his primary care physician in a week. Of course, the patient is to go to the emergency room if the symptoms recur. MD ZULEMA Aj/CHRISTA /[id number]
[2019-07-06] MEDS ORDERED: HOME MEDICATION--PATIENTS OWN PO SCH (09:00)
[2019-07-06] MEDS ORDERED: ASPIRIN 81 MG CHEW TAB PO SCH (09:00)
== END 2019-07-05 15:53 | disposition home or self-care (01) ==
LOC: ER 16:52 → INTOOBSV 18:53 → ERHOLD 18:53 → ER 22:45 → IMCU 23:11
PROVIDERS: ADMIT Internal Medicine; ATTEND Internal Medicine
DX: A41.89 Other specified sepsis (principal); M54.2 Cervicalgia; E11.9 Type 2 diabetes mellitus without complications; I10 Essential (primary) hypertension; E66.9 Obesity, unspecified; R42 Dizziness and giddiness; E87.2 Acidosis; B34.9 Viral infection, unspecified; N40.0 Benign prostatic hyperplasia without lower urinary tract symptoms; G47.33 Obstructive sleep apnea (adult) (pediatric); K21.9 Gastro-esophageal reflux disease without esophagitis; M54.5 Low back pain; R53.81 Other malaise; Z68.42 Body mass index [BMI] 45.0-49.9, adult; M54.9 Dorsalgia, unspecified; Z79.82 Long term (current) use of aspirin; Z79.84 Long term (current) use of oral hypoglycemic drugs
CPT/HCPCS: 36415; 71045; 80053; 81001; 82550; 82553; 82948; 83605; 83735; 84484; 85025; 87040; 87086; 87635; 93005; 99284; G0378; J0692; J1885; J7030; J7799